=== PATIENT | female | born 1950 | race Caucasian/White ===

== ENCOUNTER 2017-05-23 05:14 | Observation (INO) | payer MEDICARE ==
[2017-05-23] VITALS (7 sets, daily range): BP systolic 138–142; BP diastolic 60–88; PULSE 63–88; RESP 16–23; TEMP 97.6–98.3; O2SAT 97–98
[~2017-05-23] VITALS: Ht 157.5 cm; Wt 60.0 kg
[~2017-05-23 05:14] MED LIST: LEVE500T8 PO; PRED1SUS6 LEFT EYE; TEMA30CA PO
[2017-05-23] MEDS ORDERED: SODIUM CHLORIDE 0.9% FLUSH 10 ML FLUSH IVF PRN (05:30)
--- NOTE | 2017-05-23 05:43 | PD ---
HPI Chief Complaint: Seizure Time Seen by Provider: 05:19 Travel History International Travel<30 days: No Contact w/Intl Traveler<30days: No Traveled to known affect area: No History of Present Illness HPI Diagnoses a 66-year-old female with a history of aneurysm that was repaired at [facility] in July 2016, who presents here today after having a witnessed tonic- clonic seizure. The apparently according to the paramedics she was in bed and her witnessed her having tonic-clonic activity. When they arrived, the patient was slightly postictal. She was not actively seizing. The patient has not had any seizures after this point. The patient is taking Keppra for prophylactic seizure control. She reports taking the medication as prescribed. The patient denies any headache. There is no reported incontinence. The patient did not bite her tongue. The patient knows the year, the date and place. PFSH Past Medical History Diminished Hearing: No Neurologic: Yes (ANEURYSM) Influenza Vaccination: Yes Past Surgical History Neurologic Surgery: Yes (ANEURYSM REPAIR 2016) Social History Alcohol Use: Yes (OCCASIONALLY) Tobacco Use: No (QUIT 10 YRS AGO) Substance Use: No Allergies-Medications (Allergen,Severity, Reaction): Coded Allergies: No Known Allergies (Unverified Allergy, Unknown, 05/23/17) Reported Meds & Prescriptions Reported Meds & Active Scripts Active Prednisolone Acetate Opth 1% Susp 1 Drop LEFT EYE QID Reported Temazepam 30 Mg Cap 30 Mg PO HS PRN Levetiracetam 500 Mg Tab 500 Mg PO DAILY Review of Systems Except as stated in HPI: all other systems reviewed are Neg General / Constitutional: No: Fever HENT: Positive: Other (no bitten tongue), No: Headaches, Neck Pain Cardiovascular: No: Chest Pain or Discomfort, Palpitations Respiratory: No: Cough, Shortness of Breath Gastrointestinal: No: Nausea, Vomiting, Abdominal Pain Genitourinary: No: Dysuria, Incontinence Musculoskeletal: No: Weakness, Pain Neurologic: No: Weakness, Dizziness, Headache Psychiatric: No: Anxiety, Disorder of Thought Physical Exam Narrative GENERAL: Well-developed well-nourished female in no acute rest her distress. SKIN: Focused skin assessment warm/dry. HEAD: Atraumatic. Normocephalic. EYES: Pupils equal and round. No scleral icterus. No injection or drainage. ENT: No nasal bleeding or discharge. Mucous membranes pink and moist. NECK: Trachea midline. Supple. CARDIOVASCULAR: Regular rate and rhythm. No murmur appreciated. RESPIRATORY: No accessory muscle use. Clear to auscultation. Breath sounds equal bilaterally. GASTROINTESTINAL: Abdomen soft, non-tender, nondistended. Hepatic and splenic margins not palpable. MUSCULOSKELETAL: No obvious deformities. No clubbing. No cyanosis. No edema. NEUROLOGICAL: Awake and alert. No obvious cranial nerve deficits. Motor grossly within normal limits. Normal speech. PSYCHIATRIC: Appropriate mood and affect; insight and judgment normal. Data Data Last Documented VS Vital Signs Date Time Temp Pulse Resp B/P (MAP) Pulse Ox O2 Delivery O2 Flow Rate FiO2 05/23/17 05:29 98 Room Air 05/23/17 05:25 88 16 05/23/17 05:21 139/88 (105) Orders Orders Complete Blood Count With Diff (05/23/17 05:19) Ct Brain W/O Iv Contrast(Rout) (05/23/17 ) Blood Glucose (05/23/17 05:19) Ecg Monitoring (05/23/17 05:19) Iv Access Insert/Monitor (05/23/17 05:19) Oximetry (05/23/17 05:19) Comprehensive Metabolic Panel (05/23/17 05:19) Sodium Chloride 0.9% Flush (Ns Flush) (05/23/17 05:30) Levetiracetam Inj (Keppra Inj) (05/23/17 06:00) Admit Order (Ed Use Only) (05/23/17 06:12) Labs Laboratory Tests Test 05/23/17 05:22 White Blood Count 7.5 TH/MM3 Red Blood Count 3.75 MIL/MM3 Hemoglobin 12.1 GM/DL Hematocrit 35.7 % Mean Corpuscular Volume 95.1 FL Mean Corpuscular Hemoglobin 32.3 PG Mean Corpuscular Hemoglobin Concent 34.0 % Red Cell Distribution Width 13.1 % Platelet Count 232 TH/MM3 Mean Platelet Volume 9.2 FL Neutrophils (%) (Auto) 73.1 % Lymphocytes (%) (Auto) 20.5 % Monocytes (%) (Auto) 5.7 % Eosinophils (%) (Auto) 0.4 % Basophils (%) (Auto) 0.3 % Neutrophils # (Auto) 5.5 TH/MM3 Lymphocytes # (Auto) 1.5 TH/MM3 Monocytes # (Auto) 0.4 TH/MM3 Eosinophils # (Auto) 0.0 TH/MM3 Basophils # (Auto) 0.0 TH/MM3 CBC Comment DIFF FINAL Differential Comment Blood Urea Nitrogen 11 MG/DL Creatinine 0.79 MG/DL Random Glucose 113 MG/DL Total Protein 7.3 GM/DL Albumin 4.1 GM/DL Calcium Level 8.8 MG/DL Alkaline Phosphatase 69 U/L Aspartate Amino Transf (AST/SGOT) 14 U/L Alanine Aminotransferase (ALT/SGPT) 19 U/L Total Bilirubin 0.9 MG/DL Sodium Level 141 MEQ/L Potassium Level 4.0 MEQ/L Chloride Level 107 MEQ/L Carbon Dioxide Level 22.8 MEQ/L Anion Gap 11 MEQ/L Estimat Glomerular Filtration Rate 72 ML/MIN MDM Medical Decision Making Medical Screen Exam Complete: Yes Emergency Medical Condition: Yes Differential Diagnosis Nuances seizure versus intracranial hemorrhage versus metabolic derangement. Narrative Course 66-year-old female who presents after having a witnessed tonic-clonic seizure. The patient was postictal when she arrived. The patient has no focal deficits. Elect her lites are within normal limits. CBC is within normal limits. The patient's CT showed no evidence of acute abnormalities. The patient was on Keppra however according to the she was taken off of it. She will be re -loaded with Keppra. She's been started on 500 mg I V times one dose. The patient will be admitted to hospital for neurology consult. The case discussed with Dr. Renuka Escobar, on-call hospice, who agrees with the observation admission. Diagnosis Primary Impression: New onset seizure Additional Impression: History of cerebral aneurysm repair Admitting Information Admitting Physician Requests: Observation Andreas Guzman MD May 23, 2017 05:42
[2017-05-23 05:44] LABS: AUTOMATED NEUTROPHIL # 5.5 TH/MM3 (1.8-7.7); BASOPHIL % 0.3 % (0.0-2.0); EOSINOPHIL % 0.4 % (0.0-4.0); HEMATOCRIT 35.7 % (35.0-46.0); HEMOGLOBIN 12.1 GM/DL (11.6-15.3); LYMPH % 20.5 % (9.0-44.0); LYMPHOCYTE # 1.5 TH/MM3 (1.0-4.8); MEAN CELL VOLUME 95.1 FL (80.0-100.0); MEAN CORPUSCULAR HEMOGLOBIN 32.3 PG (27.0-34.0); MEAN PLATELET VOLUME 9.2 FL (7.0-11.0); MONO % 5.7 % (0.0-8.0); MONOCYTE # 0.4 TH/MM3 (0-0.9); NEUT % 73.1 % (16.0-70.0); PLATELET COUNT 232 TH/MM3 (150-450); RED BLOOD COUNT 3.75 MIL/MM3 (4.00-5.30); RED CELL DISTRIBUTION WIDTH 13.1 % (11.6-17.2); WHITE BLOOD COUNT 7.5 TH/MM3 (4.0-11.0)
[2017-05-23] MEDS ORDERED: levETIRAcetam INJ 500 MG in SODIUM CHLORIDE 0.9% INJ 100 ML IV ONE (06:00)
--- NOTE | 2017-05-23 06:00 | RADRPT ---
EXAM DATE/TIME: 05/23/2017 05:18 [place] COMPARISON: No previous studies available for comparison. INDICATIONS : Seizure. RADIATION DOSE: 56.35 CTDIvol (mGy) MEDICAL HISTORY : Seizures. SURGICAL HISTORY : Aneurysm repair. ENCOUNTER: Initial ACUITY: 1 day PAIN SCALE: Non-responsive LOCATION: cranial TECHNIQUE: Multiple contiguous axial images were obtained of the head. Using automated exposure control and adj ustment of the mA and/or kV according to patient size, radiation dose was kept as low as reasonably a chievable to obtain optimal diagnostic quality images. DICOM format image data is available electro nically for review and comparison. FINDINGS: CEREBRUM: Aneurysm clip involving the suprasellar cistern to the right of midline. The ventricles are normal fo r age. No evidence of midline shift, mass lesion, hemorrhage or acute infarction. No extra-axial fl uid collections are seen. POSTERIOR FOSSA: The cerebellum and brainstem are intact. The 4th ventricle is midline. The cerebellopontine angle i s unremarkable. EXTRACRANIAL: The visualized portion of the orbits is intact. SKULL: Prior right temporal craniotomy. No evidence of skull fracture. CONCLUSION: 1. No acute intracranial abnormality. Cirilo Farr Jr., MD on May 23, 2017 at 5:55 Board Certified Radiologist. This report was verified electronically.
[2017-05-23 06:07] LABS: ALBUMIN 4.1 GM/DL (3.4-5.0); ALT (GPT) 19 U/L (10-53); AST (GOT) 14 U/L (15-37); BICARBONATE 22.8 MEQ/L (21.0-32.0); BLOOD UREA NITROGEN 11 MG/DL (7-18); CALCIUM 8.8 MG/DL (8.5-10.1); CHLORIDE 107 MEQ/L (98-107); CREATININE 0.79 MG/DL (0.50-1.00); GLOMERULAR FILTRATION RATE 72 ML/MIN (>89); GLUCOSE,RANDOM 113 MG/DL (74-106); SODIUM (NA) 141 MEQ/L (136-145)
[2017-05-23 06:10] LABS: ALKALINE PHOSPHATASE 69 U/L (45-117); TOTAL BILIRUBIN ADULT 0.9 MG/DL (0.2-1.0); TOTAL PROTEIN 7.3 GM/DL (6.4-8.2)
[2017-05-23] MEDS ORDERED: SODIUM CHLOR 0.9% 1000 ML INJ 1,000 ML IV SCH (06:20)
[2017-05-23] MEDS ORDERED: ACETAMINOPHEN 325 MG TAB PO PRN (06:30)
[2017-05-23] MEDS ORDERED: ONDANSETRON HCL 4 MG/2 ML VIAL IVP PRN (06:30)
[2017-05-23] MEDS ORDERED: LORazepam 2 MG/ML VIAL IV PUSH PRN (06:30)
[2017-05-23] MEDS ORDERED: NALOXONE HCL 0.4 MG/ML AMP IV PUSH PRN (06:30)
[2017-05-23] MEDS ORDERED: MAGNESIUM HYDROXIDE SUSP 30 ML CUP PO PRN (06:30)
[2017-05-23] MEDS ORDERED: HEPARIN SODIUM - SQ 10,000 UNITS/ML VIAL SQ SCH (06:30)
[2017-05-23] MEDS ORDERED: LACTULOSE SYRUP 20 GM/30 ML CUP PO PRN (06:30)
[2017-05-23] MEDS ORDERED: BISACODYL 10 MG SUPP RECTAL PRN (06:30)
[2017-05-23] MEDS ORDERED: ACETAMINOPHEN/HYDROcodone 325 MG/5 MG TAB PO PRN (06:30)
[2017-05-23] MEDS ORDERED: SENNOSIDES 8.6 MG TAB PO PRN (06:30)
--- NOTE | 2017-05-23 08:13 | HHI.HP ---
HPI Service [facility] Hospitalists Primary Care Physician Robbie Chen MD Admission Diagnosis New onset seizure, hx of aneurysmal repair Diagnoses: Chief Complaint: Seizure Travel History International Travel<30 Days: No Contact w/Intl Traveler <30 Da: No Traveled to Known Affected Are: No History of Present Illness Written by Rebecca Song, acting as scribe for Dr. Agosto on 05/23/17 at 08: 03. 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 Patient denies any urinary or bowel incontinence. She denies biting her tongue. She does report some significant postictal confusion which resolved after a few minutes. Patient states she's felt well and healthy. She denies any memory of the seizure and denies any preceding symptoms. She states the last thing she remembers was going to bed. Following her aneurysmal clipping, she was no longer having the olfactory seizures and decided to take herself off of the Keppra has not taken that medication for about 6 months. She was last seen by her neurosurgeon at [facility] 6 months ago and told everything was fine. In the ED, CT of the head was obtained which showed no acute abnormality. Patient complains of headache and some mild calf tenderness that she attributes to muscle tightness during her seizure. Review of Systems Except as stated in HPI: all other systems reviewed are Neg Past Family Social History Past Medical History Brain aneurysm s/p clipping Previous history of olfactory seizures Insomnia Past Surgical History Aneurysmal clipping at [facility] 08/03 C section x 3 Reported Medications Temazepam 30 Mg Cap 30 Mg PO HS PRN Allergies: Coded Allergies: No Known Allergies (Unverified Allergy, Unknown, 05/23/17) Active Ordered Medications Current Medications Medications (Trade) Dose Ordered Sig/Parisa Route Start Time Stop Time Status Last Admin (NS Flush) 2 ml UNSCH PRN IVF 05/23/17 05:30 Sodium Chloride 1,000 ml @ 60 mls/hr [id number] IV 05/23/17 06:20 05/23/17 06:40 (NS Flush) 2 ml BID IV FLUSH 05/23/17 09:00 (Zofran Inj) 4 mg Q6H PRN IVP 05/23/17 06:30 (Heparin Inj) 5,000 units Q12H SQ 05/23/17 06:30 05/23/17 06:41 (Tylenol) 650 mg Q6H PRN PO 05/23/17 06:30 ([place] 5-325 Mg) 1 tab Q4H PRN PO 05/23/17 06:30 (Narcan Inj) 0.4 mg UNSCH PRN IV PUSH 05/23/17 06:30 (Chelsi-Colace) 1 tab BID PO 05/23/17 09:00 (Milk Of Magnesia Liq) 30 ml Q12H PRN PO 05/23/17 06:30 (Senokot) 17.2 mg Q12H PRN PO 05/23/17 06:30 (Dulcolax Supp) 10 mg DAILY PRN RECTAL 05/23/17 06:30 (Lactulose Liq) 30 ml DAILY PRN PO 05/23/17 06:30 (Ativan Inj) 1 mg Q15M PRN IV PUSH 05/23/17 06:30 Family History Father, heart condition Brother, diabetes Daughter, asthma Niece, epilepsy Social History Patient is a history of tobacco use but quit smoking 10 years ago. She reports rare alcohol consumption of red wine. She denies any illicit drug use. She is and lives with her . Physical Exam Vital Signs Vital Signs Date Time Temp Pulse Resp B/P (MAP) Pulse Ox O2 Delivery O2 Flow Rate FiO2 05/23/17 07:21 65 23 142/67 (92) 97 05/23/17 05:29 98 Room Air 05/23/17 05:25 88 16 98 Room Air 05/23/17 05:21 88 16 139/88 (105) 98 Physical Exam GENERAL: This is a well-nourished, well-developed female patient, in no apparent distress. Awake and alert. at the bedside. SKIN: No rashes, ecchymoses or lesions. Cool and dry. HEAD: Atraumatic. Normocephalic. No temporal or scalp tenderness. EYES: Pupils equal round and reactive. Extraocular motions intact. No scleral icterus. No injection or drainage. ENT: Nose without bleeding or purulent drainage. Throat without erythema, tonsillar hypertrophy or exudate. Uvula midline. Airway patent. NECK: Trachea midline. No lymphadenopathy. Supple, nontender, no meningeal signs. CARDIOVASCULAR: Regular rate and rhythm without murmurs, gallops, or rubs. RESPIRATORY: Clear to auscultation. Breath sounds equal bilaterally. No wheezes , rales, or rhonchi. GASTROINTESTINAL: Abdomen soft, non-tender, nondistended. No hepato-splenomegaly , or palpable masses. No guarding. MUSCULOSKELETAL: Extremities without clubbing, cyanosis, or edema. No joint tenderness, effusion, or edema noted. No calf tenderness. NEUROLOGICAL: Awake and alert. Cranial nerves II through XII grossly intact. Motor and sensory grossly within normal limits. Five out of 5 muscle strength in all muscle groups. No focal neurologic finding appreciated. Normal speech. Laboratory Laboratory Tests Test 05/23/17 05:22 White Blood Count 7.5 Red Blood Count 3.75 Hemoglobin 12.1 Hematocrit 35.7 Mean Corpuscular Volume 95.1 Mean Corpuscular Hemoglobin 32.3 Mean Corpuscular Hemoglobin Concent 34.0 Red Cell Distribution Width 13.1 Platelet Count 232 Mean Platelet Volume 9.2 Neutrophils (%) (Auto) 73.1 Lymphocytes (%) (Auto) 20.5 Monocytes (%) (Auto) 5.7 Eosinophils (%) (Auto) 0.4 Basophils (%) (Auto) 0.3 Neutrophils # (Auto) 5.5 Lymphocytes # (Auto) 1.5 Monocytes # (Auto) 0.4 Eosinophils # (Auto) 0.0 Basophils # (Auto) 0.0 CBC Comment DIFF FINAL Differential Comment Blood Urea Nitrogen 11 Creatinine 0.79 Random Glucose 113 Total Protein 7.3 Albumin 4.1 Calcium Level 8.8 Alkaline Phosphatase 69 Aspartate Amino Transf (AST/SGOT) 14 Alanine Aminotransferase (ALT/SGPT) 19 Total Bilirubin 0.9 Sodium Level 141 Potassium Level 4.0 Chloride Level 107 Carbon Dioxide Level 22.8 Anion Gap 11 Estimat Glomerular Filtration Rate 72 Result Diagram: 05/23/1752105/23/1722 Imaging Last Impressions Head CT 05/23/17 0000 Signed Impressions: Service Date/Time: May 05:18 - CONCLUSION: 1. No acute intracranial abnormality. MD Sheila Salas Jr. VTE Risk Assessment Sheila VTE Risk Assessment: Mod/High Risk (score >= 2) Caprini Risk Assessment Model Point Value = 1 Point Value = 2 Point Value = 3 Point Value = 5 Age 41-60 Minor surgery BMI > 25 kg/m2 Swollen legs Varicose veins or History of unexplained or recurrent spontaneous Oral contraceptives or hormone replacement Sepsis (< 1 month) Serious lung disease, including pneumonia (< 1 month) Abnormal pulmonary function Acute myocardial infarction Congestive heart failure (< 1 month) History of inflammatory bowel disease Medical patient at bed rest Age 61-74 Arthroscopic surgery Major open surgery (> 45 min) Laparoscopic surgery (> 45 min) Malignancy Confined to bed (> 72 hours) Immobilizing plaster cast Central venous access Age >= 75 History of VTE Family history of VTE Factor V Leiden Prothrombin [id number] Lupus anticoagulant Anticardiolipin antibodies Elevated serum homocysteine Heparin-induced thrombocytopenia Other congenital or acquired thrombophilia Stroke (< 1 month) Elective arthroplasty Hip, pelvis, or leg fracture Acute spinal cord injury (< 1 month) Prophylaxis Regimen Total Risk Factor Score Risk Level Prophylaxis Regimen 0-1 Low Early ambulation 2 Moderate Order ONE of the following: *Sequential Compression Device (SCD) *Heparin 5000 units SQ BID 3-4 Higher Order ONE of the following medications: *Heparin 5000 units SQ TID *Enoxaparin/Lovenox 40 mg SQ daily (WT < 150 kg, CrCl > 30 mL/min) *Enoxaparin/Lovenox 30 mg SQ daily (WT < 150 kg, CrCl > 10-29 mL/min) *Enoxaparin/Lovenox 30 mg SQ BID (WT < 150 kg, CrCl > 30 mL/min) AND/OR *Sequential Compression Device (SCD) 5 or more Highest Order ONE of the following medications: *Heparin 5000 units SQ TID (Preferred with Epidurals) *Enoxaparin/Lovenox 40 mg SQ daily (WT < 150 kg, CrCl > 30 mL/min) *Enoxaparin/Lovenox 30 mg SQ daily (WT < 150 kg, CrCl > 10-29 mL/min) *Enoxaparin/Lovenox 30 mg SQ BID (WT < 150 kg, CrCl > 30 mL/min) AND *Sequential Compression Device (SCD) Assessment and Plan Assessment and Plan 66-year-old female with 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 Tonic clonic seizure Medication noncompliance History of brain aneurysmal clipping at [facility] July 2016 - CT of the head without any acute abnormality, images personally reviewed - Patient given a loading dose of IV Keppra in the ED - Consult neurology, appreciate recommendations - Neuro checks every 4 - Monitor blood sugars - Continuous cardiac monitoring - Obtain EEG study - Seizure and fall precautions DVT prophylaxis - Heparin sq the above note was scribed by Ms. rebecca Song ( ARACELI). I attest that I had a [id number] encounter with the patient on the same day, and personally performed the physical exam and medical decision making and I reviewed the findings and the plan with the patient. Discussed Condition With Patient and Rebecca Song May 23, 2017 08:13 Alma Rosa Agosto MD May 23, 2017 08:29
[2017-05-23] MEDS ORDERED: DOCUSATE SODIUM 50 MG/SENNA 8.6 MG TAB PO SCH (09:00)
[2017-05-23] MEDS ORDERED: SODIUM CHLORIDE 0.9% FLUSH 10 ML FLUSH IV FLUSH SCH (09:00)
--- NOTE | 2017-05-23 13:17 | MG ---
cc: JASMIN BLANKENSHIP Lab No: [id number] Date: 05/23/2017 Age: Sex: F Race: TECHNIQUE 17-channel EEG. DESCRIPTION: The background rhythm reveals symmetrical alpha rhythm frequency 8 Hz, amplitude is 20 microvolts. During drowsiness there is some slowing in the theta range. Sleep spindles are identified. There are no lateralizing features seen. There are no epileptiform discharges. Hyperventilation was not done. Photic results in a fairly well-developed driving response. INTERPRETATION Normal EEG, both in the awake and sleep state. MD JOSE RAMON Chavez/KIZZY /12:49 PM /12:59 PM
--- NOTE | 2017-05-23 14:53 | MB ---
cc: MELLISA MIX MD DATE OF CONSULTATION 05/23/2017 REASON FOR CONSULTATION New onset seizure, history of aneurysm repair at [facility] in July 2016. HISTORY OF PRESENT ILLNESS A 66-year-old female with past medical history significant for olfactory seizures diagnosed two years ago. She follows up with Dr. Page of neurology. She has a diagnosis of brain aneurysm repair followed by clipping at [facility] in July 2016. She was on Keppra that she had stopped six months earlier as per who she talked to over the phone. She was on a dose of 500 mg daily. She followed up with her neurosurgeon in January and she was told that she was doing "fine" as per her own words. The patient was noted by her that she had an episode where she started gurgling and her body went stiff. She denies biting her tongue or loss of bowel or bladder control, but there was reported some postictal confusional state that lasted a few minutes. She denies any change in medication other than stopping her Keppra. No medications were added to her list. She denies any family history of epilepsy. She presented to the [facility] Room because of this seizure. She received one gram loading of Keppra. A head CT scan without contrast was reported with no acute intracranial abnormality; however, it showed an aneurysmal clip involving the suprasellar cistern to the right of the midline. No recent history of head trauma, fever or stroke. REVIEW OF SYSTEMS A 12-point review of systems is negative except for what is stated in the HPI. PAST MEDICAL HISTORY 1. Olfactory seizures. 2. Insomnia. 3. Brain aneurysm, status post clipping. PAST SURGICAL HISTORY 1. Aneurysm clipping at [facility], July 2016. 2. section x3. MEDICATIONS Temazepam 30 mg p.r.n. ALLERGIES No known allergies. FAMILY HISTORY Not significant other than a niece with epilepsy. SOCIAL HISTORY Former smoker, quit 10 years ago. Rare alcohol consumption of red wine. No illicit drug abuse. PHYSICAL EXAMINATION GENERAL: Awake, alert, oriented. Good historian. Not in acute distress HEENT: Atraumatic, normocephalic. Intact hearing. Intact vision. NECK: Supple. No signs of meningeal irritation. CARDIOVASCULAR: Regular rate and rhythm. RESPIRATORY: Clear to auscultation. No wheezes. MUSCULOSKELETAL: No clubbing, cyanosis or edema. NEUROLOGIC: Awake, alert, oriented to time, person and place. No dysarthria. No dysphasia. Cranial nerves II through XII are grossly intact. No nystagmus. No facial asymmetry. Intact facial sensation. Grade 5/5 bilateral upper and lower extremities, normal tone. No abnormal movements. Sensation intact throughout. Kucivb-[id number] and [id number] are intact. Reflexes 2+ bilateral and symmetrical. Plantars are bilaterally downgoing. LABORATORY White blood cell count 7.5, hemoglobin 12.1, platelet count 232. BUN 11, creatinine 0.79, calcium 8.8. LFTs normal. IMAGING - Head CT scan: No acute intracranial abnormality. There is an aneurysmal clip involving the suprasellar cistern to the right of the midline. IMPRESSION 1. Breakthrough seizure. 2. Tonic-clonic seizure with history of olfactory seizures. 3. Brain aneurysm, status post clipping in July 2016. PLAN 1. Given the normal neurologic exam, nonfocal exam and no acute intracranial abnormality on the head CT scan with a normal EEG pattern, the patient should be on Keppra 500 mg twice daily and follow-up with her neurologist, Dr. Page. 2. No need for further neurologic work-up. 3. Seizure precautions. Thank you for the opportunity to participate in the care of your patient. MD TERESA Fair/CARL /1:43 PM /2:24 PM ZEKE
[2017-05-23] MEDS ORDERED: levETIRAcetam 500 MG TAB PO ONE (16:45)
[2017-05-23] MEDS ORDERED: LEVE500T8 PO (16:45)
--- NOTE | 2017-05-23 16:47 | HHI.DCPOC ---
Discharge Care Plan Diagnosis: (1) Tonic clonic seizures (2) History of cerebral aneurysm repair Goals to Promote Your Health * To prevent worsening of your condition and complications * To maintain your health at the optimal level Directions to Meet Your Goals NO DRIVING FOR 6 MONTHS No swimming alone, going up on heights or caring for children unassisted Take your medications as prescribed Follow your dietary instruction Follow activity as directed Keep your appointments as scheduled Take your immunizations and boosters as scheduled If your symptoms worsen call your PCP, if no PCP go to Urgent Care Center or Emergency Room Smoking is Dangerous to Your Health. Avoid second hand smoke Call the 24-hour hour crisis hotline for domestic abuse at Rebecca Song May 23, 2017 16:47
[2017-05-24] MEDS ORDERED: levETIRAcetam 500 MG TAB PO SCH (09:00)
== END 2017-05-23 18:36 | disposition home or self-care (01) ==
LOC: NEPE 05:14 → NEDA 06:14 → NEPFCDU 08:29
PROVIDERS: ADMIT Internal Medicine; ATTEND Internal Medicine
DX: G40.89 Other seizures (principal); Z86.79 Personal history of other diseases of the circulatory system; Z87.891 Personal history of nicotine dependence; Z79.899 Other long term (current) drug therapy; R51 Headache; Z91.14 Patient's other noncompliance with medication regimen
CPT/HCPCS: 70450; 80053; 85025; 95819; 96361; 96365; 96372; 99285; G0378; J1644; J1953; J7030